=== PATIENT | female | born 1990 | race Caucasian/White ===

== ENCOUNTER 2023-05-16 09:26 | Day surgery (SDC) | payer MEDICAID ==
[~2023-05-16] VITALS: Ht 157.5 cm; Wt 86.2 kg
[2023-05-16 10:07] LABS: HCG,QUAL RESULT NEGATIVE (NEGATIVE)
[2023-05-16] MEDS ORDERED: NEOSTIGMINE METHYLSULFATE 1 MG/ML, 10 ML VIAL ONE (12:19)
[2023-05-16] MEDS ORDERED: GLYCOPYRROLATE 0.2 MG/ML VIAL ONE (12:19)
[2023-05-16] MEDS ORDERED: PROPOFOL 200MG/ 20ML VIAL (DIPRIVAN) IV ONE (12:19)
[2023-05-16] MEDS ORDERED: SEVOFLURANE 15 MIN GAS INH ONE (12:19)
[2023-05-16] MEDS ORDERED: fentaNYL CITRATE/PF 100 MCG/2 ML AMP ONE (12:19)
[2023-05-16] MEDS ORDERED: SUCCINYLCHOLINE CHLORIDE 20 MG/ML(QUELICIN) ONE (12:19)
[2023-05-16] MEDS ORDERED: LR 1,000 ML IV.SOLN IV ONE (12:19)
[2023-05-16] MEDS ORDERED: ROCURONIUM BROMIDE 10 MG/ML (ZEMURON) ONE (12:19)
[2023-05-16] MEDS ORDERED: KETOROLAC TROMETHAMINE 30 MG VIAL ONE ×2 (12:19→14:13)
[2023-05-16] MEDS ORDERED: MIDAZOLAM HCL 2 MG/2 ML VIAL (VERSED) ONE (12:19)
[2023-05-16] MEDS ORDERED: ONDANSETRON HCL 4 MG/2 ML VIAL ONE (12:19)
[2023-05-16] MEDS ORDERED: BUPIVACAINE /PF 0.5% 30 ML VIAL ONE (12:19)
[2023-05-16] MEDS ORDERED: NS IRRIG SOLN 1000 ML IR ONE (12:19)
[2023-05-16 13:00] VITALS: O2SAT 100
[2023-05-16] MEDS ORDERED: KETOROLAC TROMETHAMINE 30 MG VIAL IVP PRN (13:00)
[2023-05-16] MEDS ORDERED: ONDANSETRON HCL 4 MG/2 ML VIAL IVP PRN (13:00)
[2023-05-16] MEDS ORDERED: HYDROmorphone 1 MG/ML INJ. CARTRIDGE IVP PRN (13:00)
[2023-05-16] MEDS ORDERED: METOCLOPRAMIDE HCL 10 MG/2 ML VIAL IVP PRN (13:00)
[2023-05-16] MEDS ORDERED: IBUPROFEN 800 MG TABLET PO PRN (13:00)
[2023-05-16] MEDS ORDERED: HYDROmorphone 1 MG/ML INJ. CARTRIDGE ONE (13:27)
[2023-05-16 15:46] VITALS: BP_SYST 116; PULSE 56; RESP 16
== END 2023-05-16 15:35 | disposition home or self-care (01) ==
LOC: SMU 09:26 → SDS 09:26
PROVIDERS: ATTEND Obstetrics & Gynecology
DX: Z30.2 Encounter for sterilization (principal); F32.A Depression, unspecified
CPT/HCPCS: 87081; 58670; 84703; J3490 ×2; J1885; J3465; J2405; J2704; J0330; J3010; J1170; J7120; J2710